=== PATIENT | female | born 1975 | race Caucasian/White ===

== ENCOUNTER 2018-08-02 01:55 | Inpatient (IN) | END 2018-08-05 19:10 | disposition home or self-care (01) | DRG 392 ==

== ENCOUNTER 2019-02-10 10:03 | Day surgery (SDC) | payer OTHER ==
[~2019-02-10] VITALS: Ht 154.9 cm; Wt 73.3 kg
[~2019-02-10 10:03] MED LIST: CALC-134 PO; CIPR500T4 PO; LOPE-123 PO; METR-122 PO; MULTI PO; PANT40TA4 PO
[2019-02-10 11:08] VITALS: Ht 154.9 cm; Wt 73.3 kg
[2019-02-10] MEDS ORDERED: NO ACTIVE MEDS (11:14)
[2019-02-10 11:30] VITALS: BP 146/66; PULSE 82; RESP 18
[2019-02-10] MEDS ORDERED: MIDAZOLAM 1 MG/ML 2 ML INJ ONE ×2 (12:03)
[2019-02-10] MEDS ORDERED: FENTAnyl 50 MCG/ML VIAL ONE (12:03)
[2019-02-10 12:40] VITALS: PULSE 68; RESP 20
[2019-02-10 12:55] VITALS: PULSE 70; RESP 20
== END 2019-02-10 13:42 | disposition home or self-care (01) ==
LOC: GIL 10:03
PROVIDERS: ATTEND Internal Medicine Gastroenterology
DX: Z12.11 Encounter for screening for malignant neoplasm of colon (principal); K64.8 Other hemorrhoids
CPT/HCPCS: 45378; 84703; J2250; J3010; Z7610